=== PATIENT | female | born 1965 | race Hispanic/Latino ===

== ENCOUNTER 2020-12-25 06:08 | Day surgery (SDC) | payer MEDICARE ==
[2020-12-20 13:11] LABS: HEMATOCRIT 43.6 % (36-48); MEAN CORPUSCULAR VOLUME 93.8 fL (79-99); RED BLOOD CELL COUNT(AUTO) 4.65 MIL/uL (4.00-5.50); WHITE BLOOD COUNT (AUTO) 9.8 K/uL (4.8-10.8)
[2020-12-20 13:18] LABS: CREATININE 0.7 mg/dL (0.5-1.5); POTASSIUM 4.1 mmol/L (3.5-5.1)
[2020-12-20 13:24] LABS: INR 1.07 (0.85-1.15); PROTHROMBIN TIME 11.6 SEC (9.6-11.6)
[2020-12-20 13:25] LABS: PARTIAL THROMBOPLASTIN TIME 25.4 SEC (26.3-35.5)
[2020-12-25] VITALS (11 sets, daily range): BP systolic 98–155; BP diastolic 49–62
[~2020-12-25] VITALS: Ht 162.6 cm; Wt 89.6 kg
[~2020-12-25 06:08] MED LIST: ALPR-411 PO; ASPI-1197 PO; BACL10TA PO; CLOP75TA32 PO; FURO20TA4 PO; HYDR-4153 PO; ISOS30TA92 PO; LEVE500T19 PO; LEVO50CA4 PO; METO50TA18 PO; MODA100T31 PO; POTA-79 PO; RAMI10CA69 PO; ROSU20TA31 PO; SERT-440 PO
[2020-12-25] MEDS ORDERED: 0.9%NACL 1000ML 1,000 ML IV ONE (06:16)
[2020-12-25] MEDS ORDERED: HEPARIN 10,000 UNIT/10ML (1,000 UNIT/ML) VIAL ONE (07:27)
[2020-12-25] MEDS ORDERED: LIDOCAINE HCL 400MG/20ML VIAL ONE (07:28)
[2020-12-25] MEDS ORDERED: FENTANYL CITRATE PF 50 MCG/1 ML 2ML VIAL ONE (07:28)
[2020-12-25] MEDS ORDERED: NITROGLYCERIN 2 MG VIAL IV ONE (07:28)
[2020-12-25] MEDS ORDERED: IOHEXOL-350 50ML VIAL IV ONE (07:28)
[2020-12-25] MEDS ORDERED: MIDAZOLAM HCL 1 MG/ML 2ML VIAL ONE (07:28)
[2020-12-25] MEDS ORDERED: IOHEXOL 350 MG/ML 100ML INFUS..BTL IV ONE ×2 (07:28→07:43)
[2020-12-25] MEDS ORDERED: NICARDIPINE 25MG INJ IV ONE (07:28)
[2020-12-25] MEDS ORDERED: 0.9%NACL 1000ML 1,000 ML IV SCH (09:30)
== END 2020-12-25 14:15 | disposition home or self-care (01) ==
LOC: DAH 06:08
PROVIDERS: ATTEND Internal Medicine
DX: I25.118 Atherosclerotic heart disease of native coronary artery with other forms of angina pectoris (principal); I11.0 Hypertensive heart disease with heart failure; I50.22 Chronic systolic (congestive) heart failure; E78.5 Hyperlipidemia, unspecified; F32.9 Major depressive disorder, single episode, unspecified; F41.9 Anxiety disorder, unspecified; G35 Multiple sclerosis; E66.01 Morbid (severe) obesity due to excess calories; E03.9 Hypothyroidism, unspecified; Z79.82 Long term (current) use of aspirin; Z79.899 Other long term (current) drug therapy; Z98.890 Other specified postprocedural states; Z90.710 Acquired absence of both cervix and uterus; Z90.49 Acquired absence of other specified parts of digestive tract; Z82.49 Family history of ischemic heart disease and other diseases of the circulatory system; Z82.3 Family history of stroke; Z79.01 Long term (current) use of anticoagulants; Z68.34 Body mass index [BMI] 34.0-34.9, adult
CPT/HCPCS: 36415; 71045; 80048; 85027; 85610; 85730; 93005; 93460; A4215; A4216; A4221; A4222; A4223 ×3; A4606; A4663; C1760; C1769 ×2; C1894 ×4; J1644; J2250; J3010; J3490 ×3; J7030; Q9965; Q9967 ×2; 99156; 99157